=== PATIENT | male | born 1960 | race Two or more races ===

== ENCOUNTER 2019-08-11 10:58 | Emergency (ER) | payer BC, OTHER ==
[~2019-08-11] VITALS: Ht 170.2 cm; Wt 107.0 kg
[2019-08-11 11:30] VITALS: BP 158/91
[2019-08-11] MEDS ORDERED: BACITRACIN TOP OINT 1 UD PKG TOP ONE (14:00)
== END 2019-08-11 14:10 | disposition home or self-care (01) ==
LOC: ER 10:58
DX: S61.207A Unspecified open wound of left little finger without damage to nail, initial encounter (principal); W22.8XXA Striking against or struck by other objects, initial encounter; Y93.89 Activity, other specified; Y99.8 Other external cause status; Y92.89 Other specified places as the place of occurrence of the external cause